=== PATIENT | male | born 1960 | race Caucasian/White ===

== ENCOUNTER → 2016-09-18 | Outpatient (CLI) | payer OTHER ==
[~2016-09-18] MED LIST: ACET500C PO; LEVO25TA4 PO; LISI10TA3 PO
[2016-09-18 09:35] LABS: MEAN CORPUSCULAR HGB CONC 36.4 % (32.0-36.0)
[2016-09-18 09:58] LABS: AUTOMATED NEUTROPHIL # 3.4 TH/MM3 (1.8-7.7); BASOPHIL % 0.6 % (0.0-2.0); EOSINOPHIL # 0.2 TH/MM3 (0-0.4); EOSINOPHIL % 3.7 % (0.0-4.0); HEMATOCRIT 33.1 % (39.0-51.0); LYMPH % 8.8 % (9.0-44.0); LYMPHOCYTE # 0.4 TH/MM3 (1.0-4.8); MEAN CELL VOLUME 91.3 FL (80.0-100.0); MEAN CORPUSCULAR HEMOGLOBIN 33.2 PG (27.0-34.0); MONO % 14.2 % (0.0-8.0); NEUT % 72.7 % (16.0-70.0); PLATELET COUNT 151 TH/MM3 (150-450); RED BLOOD COUNT 3.62 MIL/MM3 (4.50-5.90); RED CELL DISTRIBUTION WIDTH 14.2 % (11.6-17.2); WHITE BLOOD COUNT 4.7 TH/MM3 (4.0-11.0)
[2016-09-18 10:03] LABS: HEMO FLAGS AUTO DIFF
[2016-09-18 10:13] LABS: ANION GAP 11 MEQ/L (5-15); AST (GOT) 48 U/L (15-37); BICARBONATE 26.3 MEQ/L (21.0-32.0); BLOOD UREA NITROGEN 11 MG/DL (7-18); CHLORIDE 88 MEQ/L (98-107); GLOMERULAR FILTRATION RATE 64 ML/MIN (>89); GLUCOSE,FASTING 91 MG/DL (74-99); POTASSIUM 4.2 MEQ/L (3.5-5.1); SODIUM (NA) 125 MEQ/L (136-145)
[2016-09-18 10:14] LABS: ALT (GPT) 34 U/L (12-78)
[2016-09-18 10:24] LABS: ALKALINE PHOSPHATASE 93 U/L (45-117); HDL CHOLESTEROL 79.1 MG/DL (40.0-60.0); LDL CHOLESTEROL 58 MG/DL (0-99); TOTAL BILIRUBIN ADULT 0.8 MG/DL (0.2-1.0)
[2016-09-18 10:47] LABS: ACANTHOCYTES OCC (NORMAL); PLATELET ESTIMATE SMEAR NORMAL (NORMAL); PLATELET MORPHOLOGY NORMAL (NORMAL); SCAN/DIFF AUTO DIFF CONFIRMED
== END ==
LOC: CLAB 09:28
PROVIDERS: ATTEND Family Medicine
DX: L59.9 Disorder of the skin and subcutaneous tissue related to radiation, unspecified (principal); I10 Essential (primary) hypertension; B19.20 Unspecified viral hepatitis C without hepatic coma; Z85.89 Personal history of malignant neoplasm of other organs and systems
CPT/HCPCS: 36415; 80053; 80061; 84443; 85025

== ENCOUNTER → 2016-11-03 | Outpatient (CLI) | payer OTHER ==
[~2016-11-03] MED LIST changes: -ACET500C PO
== END ==
LOC: CLAB 11:40
PROVIDERS: ATTEND Family Medicine
DX: E03.9 Hypothyroidism, unspecified (principal)
CPT/HCPCS: 36415; 84443

== ENCOUNTER → 2016-11-19 | Outpatient (CLI) | payer OTHER ==
[~2016-11-19] MED LIST changes: +GADODIAMIDE PF 287 MG/ML 5 ML VIAL (for RAD MRI) IV ONE
--- NOTE | 2016-11-19 12:16 | RADRPT ---
EXAM DATE/TIME: 11/19/2016 10:37 [place] COMPARISON: No previous studies available for comparison. INDICATIONS : Non healing wound from 1 year ago. CONTRAST: 12 cc Omniscan (gadodiamide) IV MEDICAL HISTORY : Carcinoma, squamous cell. SURGICAL HISTORY : Plate in jaw. ENCOUNTER: Subsequent ACUITY: > 1 year PAIN SCORE: 3/10 LOCATION: Right jaw. TECHNIQUE: Multi-weighted, multi-axial MR images of the facial soft tissue both before and after the administrat ion of intravenous contrast. FINDINGS: Patient has pain plate in the right mandible with nonhealing wound over the plate. Moderate artifact is present. There is no defined abscess. There is no adenopathy in the mid to low neck to suggest metastatic disease. There is mild prominenc e to the tonsillar pillar base of the tongue on the right side without focal abnormal enhancement. I don't see direct evidence for recurrence. PET scan could be used for further evaluation for both recurrence and osteomyelitis. CONCLUSION: Soft tissue defect over the plate with recurrent residual tumor. PET scan is suggested. Misael Theodore MD FACR on November 19, 2016 at 12:12 Board Certified Radiologist. This report was verified electronically.
== END ==
LOC: HRAD 09:51
PROVIDERS: ATTEND Family Medicine
DX: L98.499 Non-pressure chronic ulcer of skin of other sites with unspecified severity (principal); Z98.890 Other specified postprocedural states; Z85.89 Personal history of malignant neoplasm of other organs and systems
CPT/HCPCS: 70543; A9579

== ENCOUNTER → 2017-01-02 | Outpatient (CLI) | payer OTHER ==
[~2017-01-02] MED LIST changes: -GADODIAMIDE PF 287 MG/ML 5 ML VIAL (for RAD MRI) IV ONE
[2017-01-02 13:29] LABS: AUTOMATED NEUTROPHIL # 4.1 TH/MM3 (1.8-7.7); BASOPHIL % 0.7 % (0.0-2.0); EOSINOPHIL # 0.1 TH/MM3 (0-0.4); EOSINOPHIL % 1.8 % (0.0-4.0); HEMATOCRIT 30.8 % (39.0-51.0); HEMO FLAGS DIFF FINAL; LYMPH % 8.5 % (9.0-44.0); LYMPHOCYTE # 0.5 TH/MM3 (1.0-4.8); MEAN CORPUSCULAR HEMOGLOBIN 32.7 PG (27.0-34.0); MEAN CORPUSCULAR HGB CONC 34.1 % (32.0-36.0); MONO % 15.4 % (0.0-8.0); NEUT % 73.6 % (16.0-70.0); PLATELET COUNT 134 TH/MM3 (150-450); RED BLOOD COUNT 3.21 MIL/MM3 (4.50-5.90); RED CELL DISTRIBUTION WIDTH 13.2 % (11.6-17.2); WHITE BLOOD COUNT 5.6 TH/MM3 (4.0-11.0)
== END ==
LOC: CLAB 13:04
PROVIDERS: ATTEND Family Medicine
DX: Z98.890 Other specified postprocedural states (principal)
CPT/HCPCS: 36415; 85025

== ENCOUNTER → 2017-01-09 | Outpatient (CLI) | payer OTHER | LOC: CLAB 09:50 | PROVIDERS: ATTEND Physician Assistant Medical | DX: E03.9 Hypothyroidism, unspecified (principal) | CPT/HCPCS: 36415; 84439; 84443 ==